=== PATIENT | female | born 1935 | race Caucasian/White ===

== ENCOUNTER → 2017-01-13 | Outpatient (REF) ==
[2017-01-13 09:34] LABS: THYROID STIMULATING HORMONE 2.23 uIU/mL (0.465-4.680)
== END ==
LOC: ZLAB.WCH 08:40
PROVIDERS: Nurse Practitioner Family
DX: Z01.89 Encounter for other specified special examinations (principal)

== ENCOUNTER → 2017-08-18 | Outpatient (REF) ==
[2017-08-18 09:08] LABS: C-REACTIVE PROTEIN 0.5 mg/dL (0.0-0.9)
[2017-08-18 09:35] LABS: THYROID STIMULATING HORMONE 2.06 uIU/mL (0.465-4.680)
== END ==
LOC: ZLAB.WCH 08:40
PROVIDERS: Nurse Practitioner Family
DX: Z01.89 Encounter for other specified special examinations (principal)

== ENCOUNTER 2018-05-23 11:51 | Emergency (ER) | payer OTHER, MEDICARE ==
[~2018-05-23] VITALS: Ht 152.4 cm; Wt 61.4 kg
[2018-05-23 12:00] VITALS: TEMP 96.9
[2018-05-23] MEDS ORDERED: PRILOSEC 20MG20 MG PO (12:38)
[2018-05-23] MEDS ORDERED: CELEBREX 1100 MG/CAP PO (12:38)
[2018-05-23] MEDS ORDERED: NORVASC 5MG5 MG/TAB PO (12:38)
[2018-05-23] MEDS ORDERED: TOPAMAX 25MG25 M1 PO (12:38)
[2018-05-23 12:44] VITALS: BP 142/75; PULSE 78
== END 2018-05-23 12:45 | disposition home or self-care (01) ==
LOC: COL.ER 11:51
DX: S16.1XXA Strain of muscle, fascia and tendon at neck level, initial encounter (principal); I10 Essential (primary) hypertension; V43.52XA Car driver injured in collision with other type car in traffic accident, initial encounter

== ENCOUNTER → 2023-07-28 | Outpatient (CLI) | payer MEDICARE, OTHER ==
[~2023-07-28] MED LIST: ALLEGRA 180MG180 MG PO; ASPIRIN E.C. 8181 MG PO; CELEBREX 1100 MG/CAP PO; COZAAR 50MG50 MG/TAB PO; DESYREL 100MG100 MG PO; HCTZ 25MG TAB25 MG PO; HYDROCORTISON28.4 GM TP; MELATIN 3 MG-11 TAB PO; MULTI VITAMINS1 TAB PO; NORVASC 10MG10 MG PO; NORVASC 5MG5 MG/TAB PO; OMEGA-3 FISH1000 MG PO; PLAVIX 75MG TAB75 MG PO; PRILOSEC 20MG20 MG PO; REMERON 15M15 MG/TA1 PO; SINEMET 25/101 UDTAB PO; TOPAMAX 25MG25 M1 PO; TRIAMCINOLONE A15 G3 TP; TYLENOL 500MG500 MG PO
== END ==
LOC: MHCPAIN 12:49
DX: I69.351 Hemiplegia and hemiparesis following cerebral infarction affecting right dominant side (principal); R25.2 Cramp and spasm; S43.001S Unspecified subluxation of right shoulder joint, sequela; M53.3 Sacrococcygeal disorders, not elsewhere classified
CPT/HCPCS: G0463

== ENCOUNTER → 2023-11-02 | Outpatient (CLI) | payer MEDICARE, OTHER | LOC: MHCPAIN 10:49 | DX: R25.2 Cramp and spasm (principal); S43.001S Unspecified subluxation of right shoulder joint, sequela; I69.351 Hemiplegia and hemiparesis following cerebral infarction affecting right dominant side | CPT/HCPCS: G0463 ==